=== PATIENT | male | born 1970 | race Caucasian/White ===

== ENCOUNTER 2017-01-26 18:11 | Emergency (ER) | payer BC, OTHER ==
[2017-01-26 18:25] VITALS: BP 187/100
[2017-01-26] MEDS ORDERED: Sodium Chloride 0.9% 10 ML Syringe FLUSH PRN (18:26)
[2017-01-26] MEDS ORDERED: Alum Hydrox/Mag Hydrox/Simeth 30 ML, Lidocaine 2% 15 ML PO ONE ×2 (18:52)
[2017-01-26] MEDS ORDERED: LORazepam 2 MG/ML MDV IVPUSH ONE (19:52)
[2017-01-26] MEDS ORDERED: HYDROmorphone 0.5 MG/0.5 ML Syringe IVPUSH ONE ×2 (19:52→21:08)
[2017-01-26] MEDS ORDERED: Famotidine 20 MG/2 ML SDV IVPUSH ONE (19:53)
--- NOTE | 2017-01-26 20:34 | EDM.PDOC ---
ED HPI GENERAL MEDICAL PROBLEM - General Chief Complaint: Chest Pain Stated Complaint: CHEST PAIN Time Seen by Provider: 01/26/17 18:26 Source of Information: Reports: Patient, Family, RN Notes Reviewed - History of Present Illness INITIAL COMMENTS - FREE TEXT/NARRATIVE: 46-year-old male comes in with upper abdominal and lower chest discomfort that does radiate to his back. This started about 2 hours prior to arrival. He states he was sitting working on a computer, started with fairly gradual burning type discomfort similar to heartburn that he has had in the past. He did try some antacid medicine at home but that did not help. As the pain started becoming more severe they felt to best be evaluated here in the ED. He feels nauseated, feels like it would help to vomit but has not vomited. No diarrhea. No history of gallbladder problems. He does not feel short of breath and it does not hurt to breathe. He does not have pain to the upper chest, to the left shoulder or to the left arm. He is not aware of family history for heart trouble. He does have history of hypertension. He does not smoke. On arrival to ED the pain is quite severe. mid lower epigastric area Pain Score (Numeric/FACES): 7 - Related Data Allergies Allergy/AdvReac Type Severity Reaction Status Date / Time No Known Allergies Allergy Verified 01/26/17 18:25 Home Meds: Home Meds DULoxetine [Cymbalta] 60 mg PO DAILY 01/26/17 [History] Escitalopram [Lexapro] 10 mg PO DAILY 01/26/17 [History] Fenofibric Acid (Choline) [Fenofibric Acid] 135 mg PO DAILY 01/26/17 [History] Levothyroxine [Levothyroxine] 1 tab PO DAILY 01/26/17 [History] Lisinopril/Hydrochlorothiazide [Lisinopril-Hctz 20-12.5 mg Tab] 0 mg PO DAILY [History] Past Medical History HEENT History: Reports: Impaired Vision Cardiovascular History: Reports: High Cholesterol, Hypertension Respiratory History: Reports: Asthma Psychiatric History: Reports: Anxiety, Depression Endocrine/Metabolic History: Reports: Hypothyroidism, Obesity/BMI 30+ Social & Family History - Family History Family Medical History: Noncontributory - Tobacco Use Smoking Status *Q: Never Smoker Second Hand Smoke Exposure: No - Caffeine Use Caffeine Use: Reports: Soda - Alcohol Use Days Per Week of Alcohol Use: 7 Number of Drinks Per Day: 3 Total Drinks Per Week: 21 - Recreational Drug Use Recreational Drug Use: No ED ROS GENERAL - Review of Systems Review Of Systems: See Below Constitutional: Denies: Fever, Chills, Diaphoresis HEENT: Reports: No Symptoms Respiratory: Denies: Shortness of Breath, Pleuritic Chest Pain, Cough Cardiovascular: Reports: Chest Pain (Lower mid chest burning type discomfort) GI/Abdominal: Reports: Abdominal Pain (Upper mid abdomen, burning pressure type discomfort), Nausea. Denies: Vomiting Musculoskeletal: Reports: Back Pain Skin: Reports: No Symptoms Neurological: Denies: Numbness, Tingling ED EXAM, GENERAL - Physical Exam Exam: See Below General Appearance: Alert, Anxious, Moderate Distress Eye Exam: Bilateral Eye: PERRL Throat/Mouth: Normal Inspection, Normal Oropharynx Respiratory/Chest: No Respiratory Distress, Lungs Clear, Normal Breath Sounds Cardiovascular: Regular Rate, Rhythm GI/Abdominal: Soft, Tender (Mild to moderate tenderness upper mid abdomen, right upper quadrant nontender remainder of abdomen also soft and nontender). No: Guarding, Rebound Back Exam: No: CVA Tenderness (L), CVA Tenderness (R) Extremities: Normal Inspection, Normal Range of Motion. No: Leg Pain Neurological: Alert, Oriented Skin Exam: Warm, Dry, Normal Color EKG INTERPRETATION EKG Date: 01/26/17 Rhythm: NSR Monument: Normal P-Wave: Present QRS: Normal ST-T: Normal Course - Vital Signs Last Recorded V/S: Last Vital Signs Temp 97.5 F 01/26/17 18:15 Pulse 73 01/26/17 18:15 Resp 18 01/26/17 18:15 BP 187/100 H 01/26/17 18:15 Pulse Ox 99 01/26/17 18:15 - Orders/Labs/Meds Orders: Active Orders 24 hr Category Date Time Status EKG 12 Lead [EKG Documentation Completion] [RC] STAT Care 01/26/17 18:26 Active Peripheral IV Care [RC] . DIRECTED Care 01/26/17 18:27 Active Chest 1V Frontal [CR] Stat Exams 01/26/17 18:26 Taken Sodium Chloride 0.9% [Saline Flush] Med 01/26/17 18:26 Active 10 ml FLUSH ASDIRECTED PRN Peripheral IV Insertion Adult [OM.PC] Stat Oth 01/26/17 18:26 Ordered Medication Orders Sodium Chloride (Saline Flush) 10 ml FLUSH ASDIRECTED PRN PRN Reason: Keep Vein Open Last Admin: 01/26/17 19:05 Dose: 10 ml Labs: Laboratory Tests 01/26/17 01/26/17 01/26/17 Range/Units 18:25 18:25 18:25 WBC 7.08 (4.23-9.07) K/mm3 RBC 4.43 L (4.63-6.08) M/mm3 Hgb 12.7 L (13.7-17.5) gm/L Hct 38.4 L (40.1-51.0) % MCV 86.7 (79.0-92.2) fl MCH 28.7 (25.7-32.2) pg MCHC 33.1 (32.2-35.5) g/dl RDW Std Deviation 38.0 (35.1-43.9) fL Plt Count 252 (163-337) K/mm3 MPV 11.9 (9.4-12.3) fl Neut % (Auto) 60.3 (34.0-67.9) % Lymph % (Auto) 28.5 (21.8-53.1) % Bladen % (Auto) 7.2 (5.3-12.2) % Eos % (Auto) 3.2 (0.8-7.0) Baso % (Auto) 0.7 (0.1-1.2) % Neut # (Auto) 4.26 (1.78-5.38) K/mm3 Lymph # (Auto) 2.02 (1.32-3.57) K/mm3 Bladen # (Auto) 0.51 (0.30-0.82) K/mm3 Eos # (Auto) 0.23 (0.04-0.54) K/mm3 Baso # (Auto) 0.05 (0.01-0.08) K/mm3 Sodium 142 (136-145) mEq/L Potassium 3.4 L (3.5-5.1) mEq/L Chloride 102 (98-107) mEq/L Carbon Dioxide 29 (21-32) mEq/L Anion Gap 14.4 (5-15) BUN 17 (7-18) mg/dL Creatinine 1.5 H (0.7-1.3) mg/dL Est Cr Clr Drug Dosing 56.92 mL/min Estimated GFR (MDRD) 50 (>60) mL/min BUN/Creatinine Ratio 11.3 L (14-18) Glucose 108 H (74-106) mg/dL Calcium 8.9 (8.5-10.1) mg/dL Total Bilirubin 0.3 (0.2-1.0) mg/dL GGT 32 (15-85) U/L AST 26 (15-37) U/L ALT 42 (16-63) U/L Alkaline Phosphatase 49 (46-116) U/L Troponin I < 0.017 (0.00-0.056) ng/mL Total Protein 7.9 (6.4-8.2) g/dl Albumin 4.2 (3.4-5.0) g/dl Globulin 3.7 gm/dL Albumin/Globulin Ratio 1.1 (1-2) Lipase 156 (73-393) U/L 01/26/ Range/Units 20:20 WBC (4.23-9.07) K/mm3 RBC (4.63-6.08) M/mm3 Hgb (13.7-17.5) gm/L Hct (40.1-51.0) % MCV (79.0-92.2) fl MCH (25.7-32.2) pg MCHC (32.2-35.5) g/dl RDW Std Deviation (35.1-43.9) fL Plt Count (163-337) K/mm3 MPV (9.4-12.3) fl Neut % (Auto) (34.0-67.9) % Lymph % (Auto) (21.8-53.1) % Bladen % (Auto) (5.3-12.2) % Eos % (Auto) (0.8-7.0) Baso % (Auto) (0.1-1.2) % Neut # (Auto) (1.78-5.38) K/mm3 Lymph # (Auto) (1.32-3.57) K/mm3 Bladen # (Auto) (0.30-0.82) K/mm3 Eos # (Auto) (0.04-0.54) K/mm3 Baso # (Auto) (0.01-0.08) K/mm3 Sodium (136-145) mEq/L Potassium (3.5-5.1) mEq/L Chloride (98-107) mEq/L Carbon Dioxide (21-32) mEq/L Anion Gap (5-15) BUN (7-18) mg/dL Creatinine (0.7-1.3) mg/dL Est Cr Clr Drug Dosing mL/min Estimated GFR (MDRD) (>60) mL/min BUN/Creatinine Ratio (14-18) Glucose (74-106) mg/dL Calcium (8.5-10.1) mg/dL Total Bilirubin (0.2-1.0) mg/dL GGT (15-85) U/L AST (15-37) U/L ALT (16-63) U/L Alkaline Phosphatase (46-116) U/L Troponin I < 0.017 (0.00-0.056) ng/mL Total Protein (6.4-8.2) g/dl Albumin (3.4-5.0) g/dl Globulin gm/dL Albumin/Globulin Ratio (1-2) Lipase (73-393) U/L Meds: Medications Generic Name Dose Route Start Last Admin Trade Name Freq PRN Reason Stop Dose Admin Sodium Chloride 10 ml 01/26/17 18:26 01/26/17 19:05 Saline Flush FLUSH 10 ml ASDIRECTED PRN Administration Keep Vein Open Discontinued Medications Generic Name Dose Route Start Last Admin Trade Name Freq PRN Reason Stop Dose Admin Al Hydroxide/Mg Hydroxide 30 0 ml 01/26/17 18:52 01/26/17 19:05 ml/ Lidocaine HCl 15 ml PO 01/26/17 18:53 45 ml ONETIME ONE Administration Famotidine 20 mg 01/26/17 19:53 01/26/17 20:00 Pepcid IVPUSH 01/26/17 19:54 20 mg ONETIME ONE Administration Hydromorphone HCl 0.5 mg 01/26/17 19:52 01/26/17 20:00 Dilaudid IVPUSH 01/26/17 19:53 0.5 mg ONETIME ONE Administration Hydromorphone HCl 0.5 mg 01/26/17 21:08 Dilaudid IVPUSH 01/26/17 21:09 ONETIME ONE Lorazepam 0.5 mg 01/26/17 19:52 01/26/17 20:00 Ativan IVPUSH 01/26/17 19:53 0.5 mg ONETIME ONE Administration - Re-Assessments/Exams Free Text/Narrative Re-Assessment/Exam: 01/26/17 20:00. Because this did look a lot like acid reflux with spasm we did try a GI cocktail. That did give him slight relief but he continued to be quite uncomfortable, feeling somewhat better standing therefore I did order a short time ago Dilaudid 0.5 mg IV, Ativan 0.5 mg IV, Zofran and Pepcid IV. Also planning to do a 2 hour troponin. His initial troponin has come back normal. Chest x-ray looks normal. CBC is good, chemistries still pending at this time. 01/26/17 21:00. Patient is resting quite a bit more comfortably after 0.5 mg Dilaudid and Ativan IV given some time ago. The discomfort is now down to about a 4 or 5. Repeat troponin is come back negative. Bilirubin, liver enzymes and lipase have all come back negative as well. We are going to give him a repeat dose of 0.5 mg Dilaudid as his initial dose was well over an hour ago and just 0.5 mg. He does feel up to going home. Discharge instructions as documented. Departure - Departure Time of Disposition: 21:09 Disposition: Home, Self-Care 01 Condition: Fair Clinical Impression: Atypical chest pain Abdominal pain Qualifiers: Abdominal location: upper abdomen, unspecified Qualified Code(s): R10.10 - Upper abdominal pain, unspecified Referrals: Brittany Christensen, [employer] [Primary Care Provider] - Forms: ED Department Discharge Additional Instructions: Rest, clear liquids only until midmorning tomorrow, then very careful bland diet as tolerated, avoid fatty foods for now. Continue antacid medicine as previously prescribed. Follow-up clinic as needed if symptoms not continuing to resolve as expected, return to ED at any time if symptoms worsening in any way. - My Orders Last 24 Hours: My Active Orders 01/26/17 18:26 EKG 12 Lead [EKG Documentation Completion] [RC] STAT Chest 1V Frontal [CR] Stat Sodium Chloride 0.9% [Saline Flush] 10 ml FLUSH ASDIRECTED PRN Peripheral IV Insertion Adult [OM.PC] Stat 01/26/17 18:27 Peripheral IV Care [RC] . DIRECTED - Assessment/Plan Last 24 Hours: My Active Orders 01/26/17 18:26 EKG 12 Lead [EKG Documentation Completion] [RC] STAT Chest 1V Frontal [CR] Stat Sodium Chloride 0.9% [Saline Flush] 10 ml FLUSH ASDIRECTED PRN Peripheral IV Insertion Adult [OM.PC] Stat 01/26/17 18:27 Peripheral IV Care [RC] . DIRECTED
--- NOTE | 2017-01-30 12:10 | CR ---
Chest: Portable view of the chest was obtained. Comparison: No prior chest x-ray. Heart size and mediastinum are normal. Lungs are clear. Bony structures are grossly intact. Impression: 1. Nothing acute is appreciated on portable chest x-ray. Diagnostic code #1
== END 2017-01-26 21:39 | disposition home or self-care (01) ==
LOC: JD.ED 18:11
DX: R07.89 Other chest pain (principal); R10.10 Upper abdominal pain, unspecified; Z79.899 Other long term (current) drug therapy; E78.00 Pure hypercholesterolemia, unspecified; I10 Essential (primary) hypertension; E03.9 Hypothyroidism, unspecified; E66.9 Obesity, unspecified; J45.909 Unspecified asthma, uncomplicated
CPT/HCPCS: 36415; 71010; 80053; 82977; 83690; 84484; 85025; 93005; 96374; 96375; 96376; 99285; A9270; J1170; J2060; J7050; 93010; 99284